=== PATIENT | male | born 1955 | race Caucasian/White ===

== ENCOUNTER 2019-03-09 08:51 | Emergency (ER) | payer OTHER ==
[~2019-03-09] VITALS: Ht 182.9 cm; Wt 104.3 kg
[~2019-03-09 08:51] MED LIST: ALBU3IS INH; ALBU90OI INH; AMLO5 PO; ARIP30 PO; ASPI81CH PO; ATOR20 PO; ATOR40TA PO; BENZ100A PO; BUDE200IP INH; BUPR100 PO; CALC1.25T PO; CARV25 PO; CHLO25B PO; CODGUAEL PO; CYAN1000 PO; DABI150C PO; DELTASONE20 MG PO; DULERA 200 MCG/13 GM INH; FOSI10 PO; FURO20 PO; FURO40 PO; GABA400 PO; GABA600 PO; HYDHCL25 PO; IPRAOI INH; LEVO750 PO; LORA.5 PO; LORA10 PO; MECL12.5 PO; MELO7.5 PO; METCAR750 PO; PRED20; PRED20 PO; SERT50 PO; SILD50TA PO; TIOT18 INH; XARELTO15 MG PO
[2019-03-09 09:11] LABS: BASOPHILS ABSOLUTE AUTO 0.08 K/mm3 (0.00-0.23); BASOPHILS PERCENT AUTO 1 % (0-2); EOSINOPHILS PERCENT AUTO 2 % (0-6); Hematocrit 45.7 % (37.0-53.0); Hemoglobin 15.3 g/dL (13.5-17.5); IMMATURE GRAN ABSOLUTE AUTO 0.05 K/mm3 (0.00-0.10); IMMATURE GRAN PERCENT AUTO 1 % (0-1); LYMPHOCYTES ABSOLUTE AUTO 1.99 K/mm3 (0.84-5.20); LYMPHOCYTES PERCENT AUTO 19 % (21-46); MONOCYTES PERCENT AUTO 8 % (4-13); Mean Corpuscular HGB 30.4 pg (26.0-34.0); Mean Corpuscular HGB Conc 33.5 g/dL (31.5-36.5); Mean Corpuscular Volume 91 fL (80-100); Mean Platelet Volume 9.9 fL (9.1-12.4); NEUTROPHILS ABSOLUTE AUTO 7.56 K/mm3 (1.96-9.15); NEUTROPHILS PERCENT AUTO 71 % (41-73); Platelet Count 246 K/mm3 (150-400); RDW Coefficient Variation 13.3 % (11.7-14.2); RDW Standard Deviation 44.7 fL (35.1-46.3); Red Blood Cell Count 5.03 M/mm3 (4.30-5.90); White Blood Cell Count 10.68 K/mm3 (4.00-11.30)
[2019-03-09 09:25] LABS: Alanine Aminotransfer (ALT/SGP 20 U/L (12-78); Albumin, Blood 3.3 g/dL (3.4-5.0); Albumin/Globulin Ratio 0.9 (0.8-1.8); Alk Phos 79 U/L (50-136); Anion Gap 6 mmol/L (6-16); Aspartate Aminotrans (AST/SGOT 18 U/L (12-37); Bilirubin, Total 0.6 mg/dL (0.1-1.0); Blood Urea Nitrogen 15 mg/dL (8-24); Bun/Creatinine Ratio 14.9 (12.0-20.0); CO2, Blood 29 mmol/L (21-32); Calcium, Blood 8.8 mg/dL (8.5-10.1); Chloride, Blood 106 mmol/L (98-108); Creatinine, Blood 1.01 mg/dL (0.60-1.20); Globulin, Blood 3.5 g/dL (2.2-4.0); Glomerular Filtration Rate >60 (60-); Glucose, Blood 117 mg/dL (70-99); Potassium, Blood 4.2 mmol/L (3.5-5.5); Sodium, Blood 141 mmol/L (136-145); Total Protein, Blood 6.8 g/dL (6.4-8.2); Troponin I 0.019 ng/mL (0.000-0.040)
[2019-03-09] MEDS ORDERED: METPRE4DP PO (10:58)
[2019-03-09] MEDS ORDERED: Zithromax250 MG PO (10:58)
== END 2019-03-09 11:10 | disposition home or self-care (01) ==
LOC: ER 08:51
PROVIDERS: Emergency Medicine
DX: J44.0 Chronic obstructive pulmonary disease with (acute) lower respiratory infection (principal); J20.9 Acute bronchitis, unspecified; J44.1 Chronic obstructive pulmonary disease with (acute) exacerbation; I10 Essential (primary) hypertension; F41.9 Anxiety disorder, unspecified; Z86.73 Personal history of transient ischemic attack (TIA), and cerebral infarction without residual deficits; Z79.899 Other long term (current) drug therapy; Z79.01 Long term (current) use of anticoagulants; Z79.52 Long term (current) use of systemic steroids
CPT/HCPCS: 71046; 80053; 83880; 84484; 85025; 93005; 93010; 94640; 96374; 99284-25; J2930

== ENCOUNTER 2019-07-10 03:27 | Inpatient (IN) | payer OTHER ==
[~2019-07-10] VITALS: Ht 182.9 cm; Wt 100.1 kg
[~2019-07-10 03:27] MED LIST changes: +METPRE4DP PO; +Zithromax250 MG PO
[2019-07-10 03:48] LABS: BASOPHILS ABSOLUTE AUTO 0.09 K/mm3 (0.00-0.23); BASOPHILS PERCENT AUTO 1 % (0-2); EOSINOPHILS ABSOLUTE AUTO 0.02 K/mm3 (0.00-0.68); EOSINOPHILS PERCENT AUTO 0 % (0-6); Hemoglobin 16.8 g/dL (13.5-17.5); IMMATURE GRAN ABSOLUTE AUTO 0.29 K/mm3 (0.00-0.10); IMMATURE GRAN PERCENT AUTO 2 % (0-1); LYMPHOCYTES ABSOLUTE AUTO 1.69 K/mm3 (0.84-5.20); LYMPHOCYTES PERCENT AUTO 10 % (21-46); MONOCYTES ABSOLUTE AUTO 1.05 K/mm3 (0.16-1.47); MONOCYTES PERCENT AUTO 6 % (4-13); Mean Corpuscular HGB Conc 33.6 g/dL (31.5-36.5); Mean Corpuscular Volume 92 fL (80-100); NEUTROPHILS ABSOLUTE AUTO 13.83 K/mm3 (1.96-9.15); NEUTROPHILS PERCENT AUTO 82 % (41-73); Platelet Count 187 K/mm3 (150-400); RDW Coefficient Variation 14.1 % (11.7-14.2); RDW Standard Deviation 47.6 fL (35.1-46.3); Red Blood Cell Count 5.42 M/mm3 (4.30-5.90); White Blood Cell Count 16.97 K/mm3 (4.00-11.30)
[2019-07-10 04:11] LABS: Albumin, Blood 3.5 g/dL (3.4-5.0); Albumin/Globulin Ratio 0.8 (0.8-1.8); Bilirubin, Total 1.8 mg/dL (0.1-1.0); Bun/Creatinine Ratio 19.2 (12.0-20.0); Calcium, Blood 8.9 mg/dL (8.5-10.1); Creatinine, Blood 3.17 mg/dL (0.60-1.20); Globulin, Blood 4.2 g/dL (2.2-4.0); Potassium, Blood 4.7 mmol/L (3.5-5.5); Total Protein, Blood 7.7 g/dL (6.4-8.2)
[2019-07-10 04:30] LABS: Troponin I 0.903 ng/mL (0.000-0.040)
--- NOTE | 2019-07-10 04:41 | NUR ---
REPORT FROM CHRISTIAN GARSIA RN. AWAITING TRANSFER TO UNIT, ROOM READY.
--- NOTE | 2019-07-10 06:54 | NUR ---
ADMITTING NOTE TO PCU PATIENT ARRIVED TO PCU VIA GURNEY - TRANSFERED TO UNIT BED VIA SLIDER SHEET WITH 4 NURSE ASSIST AND RESPIRTORY THERAPY ASSIT WITH BIPAP IN PLACE. PATIENT COULD NOT TOLERATE BIPAP OFF FOR MORE THAN 2 MINUTES - PATIENT HAS TACHPENIA WITH SOB AND HEAVY WORK OF BREATHING AT REST. BIPAP REMAINS IN PLACE FIO2 70% AND CONTINUOUS BIOX IN PLACE. PATIENT IS DIAPHORETIC. HR 120'S AFIB PER PROFESSOR OF COUNSELING. CALL LIGHT W/I REACH. WILL CONTINUE TO MONITOR AND REPORT TO DAYSHIFT RN.
[2019-07-10 08:08] LABS: Adenovirus Not Detected (NOT DETECT); Bordetella pertussis Not Detected (NOT DETECT); Chlamydophila pneumoniae Not Detected (NOT DETECT); Coronavirus 229E Not Detected (NOT DETECT); Coronavirus HKU1 Detected (NOT DETECT); Coronavirus NL63 Not Detected (NOT DETECT); Coronavirus OC43 Not Detected (NOT DETECT); Human Metapneumovirus Not Detected (NOT DETECT); Human Rhinovirus/Enterovirus Not Detected (NOT DETECT); Influenza A Not Detected (NOT DETECT); Influenza A/2009-H1 Not Detected (NOT DETECT); Influenza A/H1 Not Detected (NOT DETECT); Influenza A/H3 Not Detected (NOT DETECT); Influenza B Not Detected (NOT DETECT); Mycoplasma pneumoniae Not Detected (NOT DETECT); Parainfluenza Virus 1 Not Detected (NOT DETECT); Parainfluenza Virus 2 Not Detected (NOT DETECT); Parainfluenza Virus 3 Not Detected (NOT DETECT); Parainfluenza Virus 4 Not Detected (NOT DETECT); Respiratory Syncytial Virus Not Detected (NOT DETECT)
[2019-07-10 12:29] LABS: Troponin I 1.26 ng/mL (0.000-0.040)
[2019-07-10 13:28] LABS: Creatine Kinase MB 10.5 ng/mL (0.0-3.6); Creatine Kinase MB Index 3.2 (0.0-4.0)
[2019-07-10 15:07] LABS: Albumin, Blood 3.4 g/dL (3.4-5.0); Anion Gap 15 mmol/L (6-16); Blood Urea Nitrogen 77 mg/dL (8-24); Bun/Creatinine Ratio 22.4 (12.0-20.0); CO2, Blood 21 mmol/L (21-32); Calcium, Blood 8.4 mg/dL (8.5-10.1); Chloride, Blood 99 mmol/L (98-108); Creatinine, Blood 3.44 mg/dL (0.60-1.20); Glomerular Filtration Rate 19 (60-); Glucose, Blood 197 mg/dL (70-99); Phosphorus, Blood 4.7 mg/dL (2.5-4.9); Sodium, Blood 135 mmol/L (136-145)
[2019-07-10 15:10] LABS: Thyroid Stimulating Hormone 0.509 uIU/mL (0.360-4.800)
--- NOTE | 2019-07-10 17:10 | NUR ---
Echocardiogram completed
[2019-07-10 19:06] LABS: Source, Urine Catheter
[2019-07-10 19:09] LABS: Appearance, Urine Clear (Clear); Blood, Urine 1+ (Neg); Color, Urine Amber (P-Yellow); Glucose Qualitative, Urine Neg (Neg); Ketones, Urine 1+ (Neg); Leukocyte Esterase, Urine 1+ (Neg); Nitrite, Urine Neg (Neg); Protein, Urine 2+ (Neg); Urobilinogen, Urine 1+ (Normal)
--- NOTE | 2019-07-10 19:41 | NUR ---
ASSUMED CARE OF PT. IN NO ACUTE DISTRESS AT THIS TIME. TOLERATING BIPAP WELL AT THIS TIME. O2 SATS STABLE. CALL LIGHT AND POSSESSIONS IN REACH, WILL CONTINUE TO MONITOR.
[2019-07-10 19:46] LABS: Bilirubin, Urine 1+ (Neg)
--- NOTE | 2019-07-10 19:48 | NUR ---
SHIFT SUMMARY PT HAD A VERY EVENTFUL AFTERNOON. TITRATED DOWN TO 50% FROM 70% ON FIO2, USED CALL LIGHT TO REPORT "HAVING A HARD TIME BREATHING" CALL TO LISA, INCREASED FIO2 TO 55% THEN 60% AFTER ALSO REPOSITIONING AND AFTER SEVERAL MIN SATS WERE STILL 85-86%. HEPARIN ORDERED MISSED, SEBLE AWARE. BOLUS GIVEN AND GTT STARTED FOR POSSIBLE PE. AFTER SPEAKING WITH DOCTORS, PT CALLED TO REPORT LEFT LEG PAIN, DR. HERNANDEZ INFORMED. TROPONIN CRIT THIS AFTERNOON WELL. PT WAS PLACED ON NS FOR KIDNEY FAILURE DESPITE BNP. MANNING CATH PLACED FOR STRICT I&O'S. NEW IV 20G IN LW FOR HEP GTT. PT FILEMON ALL OF THIS WELL WITH PLEASANT, COOPERATIVE DEMEANER AND SENSE OF HUMOR. BEDSIDE REPORT GIVEN TO BRITTNEY RN AND LUIS ANTONIO FREITAS. CALL LIGHT IN REACH. HIGH FLOW NC IN REACH AT 10L FOR 4MIN TOLERATION OFF BIPAP.
[2019-07-10 19:55] LABS: Amorphous Light (0-Heavy); Bacteria Few /hpf; Squamous Epithelial Cells Rare /hpf (Few)
--- NOTE | 2019-07-10 20:35 | NUR ---
DR. COCHRAN IN TO SEE PT. ORDERS RECEIVED.
--- NOTE | 2019-07-10 21:00 | NUR ---
HOTEL GENERAL MANAGER INITIATED, PT TRANSFERRED TO ICU. BEDSIDE REPORT GIVEN TO MARELY LAUNDRY MACHINE TENDER. ALL BELONGINGS SENT WITH PT, NURSING TELEPHONE TECHNICIAN MACKENZIE ATTEMPTING TO CONTACT PT'S FAMILY REGARDING TRANSFER AND CHANGE IN CONDITION. HEPARIN DRIP ONGOING AT THIS TIME.
[2019-07-10 21:26] LABS: Troponin I 1.16 ng/mL (0.000-0.040)
--- NOTE | 2019-07-10 21:30 | NUR ---
UPDATE CHARGE NURSE AYE CALLED IMAGING TO CHECK WHEN IMAGING PROCEDURES WOULD BE COMPLETE. TECH IN TO PATIENTS ROOM TO DO ULTRASOUND OF LEGS AT APPROX 2000. ONCE COMPLETED APPROX 10-15 MINUTES LATER TECH STATED THAT PATIENT APPEARED TO HAVE A DVT IN LEFT LOWER LEG BUT THAT THE RESULTS WERE NOT OFFICALLY READ BY A DR AIME. ONCE TECH LEFT THIS RN THEN WAS RECHECKING PATIENT'S BP MANUALLY, THEN O2 STATES BEGAN TO DROP AND PATIENT UNABLE TO MAINTAIN O2 STATS GREATER THAN 90%. RESPRITORY THERAPY CALLED TO ROOM AND CHRAGE NURSE AYE RN CALLED INTO ROOM WELL. CORPORATE REAL ESTATE MANAGER INITIATED DUE INABILITY TO INCREASE O2 STATES AND INABILITY TO OBTAIN AN ACCURATE BLOOD PRESSURE. NURSE PRACTIONER MAXIMO GIRARD NOTTIFIED OF UNOFFICAL RESULTS OF THE BILATERAL LEG SCAN UPON ARRIVAL TO THE CORPORATE REAL ESTATE MANAGER.
[2019-07-10 21:58] LABS: Creatine Kinase MB 9.7 ng/mL (0.0-3.6); Creatine Kinase MB Index 2.9 (0.0-4.0)
--- NOTE | 2019-07-10 22:26 | NUR ---
RAPID RESPONSE CALLED AT 2046, PT TRANSFERED TO ICU-11 AT 2053. PT MOVED TO ICU BED, APPEARED CYANOTIC, PLANNED TO INTUBATE. 2099- ER AT BEDSIDE WITH/ HOSPITALIST MAXIMO, MACI CORDOVA. 2103- ETOMIDATE AND ROCURONIUM GIVEN FOR INTUBATION, BP 87/60(70) HR - 123 2106- PLUSE CHECK POSITIVE- ATROPINE 2108- INTUBATED 8.0 26@LIP 2108-HR 27 EPI 1MG, CODE CALLED, CPR STARTED 2110- PULSE POSITIVE IRREG 2110- REFER TO CODE SHEET
--- NOTE | 2019-07-10 23:22 | NUR ---
[facility] NOTIFIED. WAITING FOR CALL BACK FROM [place].
--- NOTE | 2019-07-11 02:01 | NUR ---
SERGEANT RUSH NOTIFIED AND RELEASED THE BODY AT 9784. SHU FROM [facility] NOTIFIED. [facility] NOTIFIED-[facility]. SHERI [facility]OR NOTIFIED.
== END 2019-07-10 21:52 | DRG 208 ==
LOC: ER 03:27 → PCU 04:51 → ICUW 20:53
PROVIDERS: Emergency Medicine; Internal Medicine; ADMIT Internal Medicine
PROC: 5A09357 Assistance with Respiratory Ventilation, Less than 24 Consecutive Hours, Continuous Positive Airway Pressure (ICD-10-PCS; principal; 2019-07-10)
PROC: 5A1935Z Respiratory Ventilation, Less than 24 Consecutive Hours (ICD-10-PCS; 2019-07-10)
PROC: 0BH18EZ Insertion of Endotracheal Airway into Trachea, Via Natural or Artificial Opening Endoscopic (ICD-10-PCS; 2019-07-10)
DX: I26.09 Other pulmonary embolism with acute cor pulmonale (principal); J96.01 Acute respiratory failure with hypoxia; N17.0 Acute kidney failure with tubular necrosis; J44.1 Chronic obstructive pulmonary disease with (acute) exacerbation; E87.1 Hypo-osmolality and hyponatremia; I82.402 Acute embolism and thrombosis of unspecified deep veins of left lower extremity; Z86.73 Personal history of transient ischemic attack (TIA), and cerebral infarction without residual deficits; E78.00 Pure hypercholesterolemia, unspecified; I25.10 Atherosclerotic heart disease of native coronary artery without angina pectoris; I10 Essential (primary) hypertension; J20.8 Acute bronchitis due to other specified organisms; R00.1 Bradycardia, unspecified; I46.2 Cardiac arrest due to underlying cardiac condition; D75.1 Secondary polycythemia
CPT/HCPCS: 0099U; 31500; 36415; 36416; 51702; 71045; 76770; 80053; 80069; 81001; 82550; 82553; 83880; 84443; 84484; 85025; 85730; 87086; 93005; 93010; 93306; 93970; 94002; 94640; 94660; 94762; 96374; 99285-25; J0171; J0456; J0461; J1644; J2270; J2930; J7030; J7050; J7060